=== PATIENT | male | born 1980 | race Caucasian/White ===

== ENCOUNTER 2017-07-09 12:51 | Emergency (ER) | payer OTHER ==
[2017-07-09] MEDS ORDERED: Acetaminophen TAB* 325 MG PO ONE (14:31)
[2017-07-09 16:44] VITALS: BP 136/73
--- NOTE | 2017-07-13 15:50 | ED ---
Wendy Jasmine Gabriel scribed for Mariano Jones MD on 07/09/17 at 1428 . Headache - HPI Summary HPI Summary: This patient is a 36 year old M presenting to [facility] with a chief complaint of ARMENTA since 0500 this morning. The patient rates the intermittent pain 3/10 in severity. Patient reports myalgia, decreased appetite, and chills. Patient denies n/v/d, CP, SOB, pain behind the eyes, and dental pain. Patient reports positive contact with sick persons and has history of migraines. - History Of Current Complaint Chief Complaint: EDHeadache Stated Complaint: POSSIBLE FLU Time Seen by Provider: 07/09/17 14:16 Hx Obtained From: Patient Initially Headache Was: Initial Pain Scale(0-10)= - 8 Currently Pain Is: Current Pain Scale(0-10)= - 3 Timing: Constant Associated Signs And Symptoms: Other (Noted In Comments) - myalgia, decreased appetite, and chills - Allergies/Home Medications Allergies/Adverse Reactions: Allergies Allergy/AdvReac Type Severity Reaction Status Date / Time Penicillins Allergy Unknown Verified 07/09/17 13:08 Reaction Details Home Medications: Home Medications NK [No Home Medications Reported] 07/09/17 [History Confirmed 07/09/17] PMH/Surg Hx/FS Hx/Imm Hx Endocrine/Hematology History: Denies: Hx Anticoagulant Therapy, Hx Blood Disorders, Hx Blood Transfusions Cardiovascular History: Denies: Hx Cardiac Arrest, Hx Cardiomegaly, Hx Congestive Heart Failure Respiratory History: Denies: Hx Chronic Obstructive Pulmonary Disease (COPD), Hx Cystic Fibrosis Neurological History: Reports: Hx Migraine Infectious Disease History: No Infectious Disease History: Denies: Traveled Outside the [place] in Last 30 Days - Family History Known Family History: Negative: Renal Disease, Respiratory Disease, Seizure Disorder - Social History Occupation: Employed Full-time Alcohol Use: Occasionally Substance Use Type: Reports: Marijuana Smoking Status (MU): Former Smoker Review of Systems Constitutional: Other - decreased appetite Positive: Chills Negative: Erythema Negative: Dental Pain, Sore Throat Negative: Chest Pain Negative: Shortness Of Breath, Cough Negative: Abdominal Pain, Vomiting, Diarrhea, Nausea Negative: dysuria, hematuria Positive: Myalgia. Negative: Edema Negative: Rash Neurological: Negative - dizziness Positive: Headache All Other Systems Reviewed And Are Negative: Yes Physical Exam - Summary Physical Exam Summary: Constitutional: Well-developed, Well-nourished, Alert. (-) Distressed Skin: Warm, Dry HENT: Normocephalic; Atraumatic Eyes: Conjunctiva normal Neck: Musculoskeletal ROM normal neck. (-) JVD, (-) Stridor, (-) Tracheal deviation Cardio: Rhythm regular, rate normal, Heart sounds normal; Intact distal pulses; The pedal pulses are 2+ and symmetric. Radial pulses are 2+ and symmetric. (-) Murmur Pulmonary/Chest wall: Effort normal. (-) Respiratory distress, (-) Wheezes, (-) Rales Abd: Soft, (-) Tenderness, (-) Distension, (-) Guarding, (-) Rebound Musculoskeletal: (-) Edema Lymph: (-) Cervical adenopathy Neuro: Alert, Oriented x3 Psych: Mood and affect Normal Triage Information Reviewed: Yes Vital Signs On Initial Exam: Initial Vitals Temp Pulse Resp BP Pulse Ox 99.1 F 71 16 173/96 98 07/09/17 13:04 07/09/17 13:04 07/09/17 13:04 07/09/17 13:04 07/09/17 13:04 Vital Signs Reviewed: Yes - [place] Coma Scale Coma Scale Total: 15 Diagnostics - Vital Signs Vital Signs Temp Pulse Resp BP Pulse Ox 07/09/17 13:04 99.1 F 71 16 173/96 98 - Laboratory Lab Statement: Any lab studies that have been ordered have been reviewed, and results considered in the medical decision making process. Headache Course/Dx - Course Assessment/Plan: This patient is a 36 year old M presenting to [facility] with a chief complaint of ARMENTA since 0500 this morning. The patient rates the intermittent pain 3/10 in severity. Patient reports myalgia, decreased appetite , and chills. Patient denies n/v/d, CP, SOB, pain behind the eyes, and dental pain. Patient reports positive contact with sick persons and has history of migraines. Test results with no significant abnormalities. In the ED course the patient was given Tylenol. ARMENTA may be due to viral or transient HTN no indication to start antihypertensive at this time no suspicion on meningitis. Patient will be discharged and follow up from physician referral center. The patient is agreeable with this plan. - Diagnoses Provider Diagnoses: Headache, Hypertension Discharge - Discharge Plan Condition: Stable Disposition: HOME Patient Education Materials: Acute Headache (ED) Referrals: No Primary Care Phys,NOPCP [Primary Care Provider] - [facility] PHYSICIAN REFERRAL [Outside] - 3 Days Additional Instructions: RETURN TO THE EMERGENCY DEPARTMENT FOR CHANGING OR WORSENING SYMPTOMS. The documentation as recorded by the Wendy upton Gabriel accurately reflects the service I personally performed and the decisions made by , Mariano Jones MD.
== END 2017-07-09 16:40 | disposition home or self-care (01) ==
LOC: ED 12:51
DX: R51 Headache (principal); I10 Essential (primary) hypertension; Z88.0 Allergy status to penicillin; Z87.891 Personal history of nicotine dependence
CPT/HCPCS: 87502; 99282; A9270-GY

== ENCOUNTER 2018-03-11 13:29 | Emergency (ER) | payer SELFPAY ==
[2018-03-11 13:51] VITALS: BP 137/93
--- NOTE | 2018-03-11 14:53 | ED ---
Back Pain - HPI Summary HPI Summary: A 37 y/o male presents to [facility] c/o back pain for the past 2 weeks. Currently, he describes his back pain as a spasm and when he sits the pain worsens. According to the patient, he was lifting an oven door (approximately 500 lbs for [employer], work-place injury) when he felt the back pain. He stated that he was lifting the object with four other individuals, however, he had trouble as it was straining his arms. He noted that he "seized up" when he stood back up (from sitting position) for the past two-weeks intermittently. However, yesterday, he was completing regular routine activities, which led to it exhibiting a throbbing character. Today, the pain has been shooting in his lower back and both sides. Additionally, he has been having trouble moving his legs such as when he is driving) or getting in/out of bed. no bowel/bladder changes. No analgesia taken Patients medication reviewed this visit. - History of Current Complaint Chief Complaint: UCBackPain Stated Complaint: BACK PAIN Time Seen by Provider: 03/11/18 14:31 Hx Obtained From: Patient Onset/Duration: Sudden Onset, Lasting Weeks, Still Present Onset/Duration: Started Weeks Ago, Still Present Timing: Intermittent Back Pain Location: Is Discrete @ - Lower back and sides Severity Initially: Moderate Severity Currently: Moderate Pain Intensity: 7 Pain Scale Used: 0-10 Numeric Character: Sharp, Throbbing, Spasmodic Aggravating Symptom(s): Other - Sitting Alleviating Symptom(s): Nothing Associated Signs And Symptoms: Positive: Negative - Allergies/Home Medications Allergies/Adverse Reactions: Allergies Allergy/AdvReac Type Severity Reaction Status Date / Time Penicillins Allergy Unknown Verified 03/11/18 13:51 Reaction Details PMH/Surg Hx/FS Hx/Imm Hx Previously Healthy: Yes Endocrine/Hematology History: Denies: Hx Anticoagulant Therapy, Hx Blood Disorders, Hx Blood Transfusions Cardiovascular History: Reports: Hx Hypertension Denies: Hx Cardiac Arrest, Hx Cardiomegaly, Hx Congestive Heart Failure Respiratory History: Denies: Hx Chronic Obstructive Pulmonary Disease (COPD), Hx Cystic Fibrosis Neurological History: Reports: Hx Migraine - Surgical History Surgery Procedure, Year, and Place: right forearm repair with plates and screws Infectious Disease History: No Infectious Disease History: Denies: Traveled Outside the [place] in Last 30 Days - Family History Known Family History: Negative: Renal Disease, Respiratory Disease, Seizure Disorder - Social History Occupation: Employed Full-time - [employer] Alcohol Use: Occasionally Substance Use Type: Reports: Marijuana Smoking Status (MU): Former Smoker Review of Systems Negative: Fever Positive: Other - POSITIVE: Back pain All Other Systems Reviewed And Are Negative: Yes Physical Exam - Summary Physical Exam Summary: Vital Signs Reviewed: Yes A+Ox3, no distress Eyes: Conjunctiva Clear, DARIA. EOM intact and full ENT: Hearing grossly normal TM x 2 clear, mmoist, uvula midline, no exudate, no erythema Neck: Positive: Supple Respiratory: Positive: No respiratory distress, No accessory muscle use + CTA throughout no w/r Cardiovascular: RRR nl s1, s2 no m/r CBT <2 sec abd soft + BS nt/nd no guarding, no distension Musculoskeletal Exam: No spinous process pain c/t/l/s Full aROM c spine + TTP Right lumbar paraspinal. + SLE b/l + flex/ext knee, ankle Neurological: Positive: Alert, + sensation throughout 2+ patellar without clonus + gross sensation b/l throughout Psychological: Positive: Normal Response To Family Skin: Positive: no rash, no ecchymosis Triage Information Reviewed: Yes Vital Signs On Initial Exam: Initial Vitals Temp Pulse Resp BP Pulse Ox 98.6 F 65 18 137/93 100 03/11/18 13:47 03/11/18 13:47 03/11/18 13:47 03/11/18 13:47 03/11/18 13:47 Vital Signs Reviewed: Yes Diagnostics - Vital Signs Vital Signs Temp Pulse Resp BP Pulse Ox 03/11/18 13:47 98.6 F 65 18 137/93 100 - Laboratory Lab Statement: Any lab studies that have been ordered have been reviewed, and results considered in the medical decision making process. - Radiology LUMBAR SPINE XR Radiology Interpretation Completed By: Radiologist - Unremarkable lumbar spine. [facility] PHYSICIAN REVIEWED THIS RADIOLOGY REPORT. Back Pain Course/Dx - Course Course Of Treatment: Pt with b.l low back pain R>L following lifting a 500lb item at work 2 weeks ago. pt states has felt tight since. Pt states since yesterday increased pain and paresthesia right LE. No sensation change no bowel /bladder changes. no analgesia taken. will give motrin, imaging. anticipate motrin/apap. heat. stretch. physcian referral. physical therapy referral - Diagnoses Provider Diagnoses: Lumbar strain Discharge - Sign-Out/Discharge Documenting (check all that apply): Patient Departure - DISCHARGE All imaging exams completed and their final reports reviewed: Yes - LUMBAR SPINE XR - Discharge Plan Condition: Stable Disposition: HOME Patient Education Materials: Low Back Strain (ED), Core Strengthening Exercises (GEN), Lower Back Exercises (ED) Referrals: [facility] [Outside] (Call for an appointment.) Additional Instructions: - Okay to alternate ibuprofen (Advil, Motrin) 600mg and Tylenol every 3 hours as needed for pain. Take with food. Do NOT take for more than 4-5 days.- -Apply moist heat to your back for 20 minutes at a time, 4-5 times a day. Once your muscles are warm. Once your muscles are warm, slow gentle stretching exercises are important. After you stretch your muscles, okay to apply ice ( wrapped in a towel) - When you sleep, if you are on your back, place a pillow under your knees. If you are on your side, place pillow between your knees. - You have been given a referral to physical therapy - it is recommended you call to schedule an appointment. -If you pain is uncontrolled or you have leg weakness or loss of control to your bladder or bowels - it is recommended you go to an emergency department for further treatment - Billing Disposition and Condition Condition: STABLE Disposition: Home - Attestation Statements Document Initiated by Charlene: Yes Documenting Scribe: Everett Johnson Provider For Whom Charlene is Documenting (Include Credential): Dora Thorpe MD Scribe Attestation: Everett Jasmine, scribed for Dora Thorpe MD on 03/13/18 at 1410. Scribe Documentation Reviewed: Yes Provider Attestation: The documentation as recorded by the Everett upton accurately reflects the service I personally performed and the decisions made by me, Dora Thorpe MD
[2018-03-11] MEDS ORDERED: Ibuprofen TAB* 600 MG PO ONE (15:16)
--- NOTE | 2018-03-11 15:25 | RAD ---
Indication: Low back pain. 3 views of the lumbar spine demonstrate vertebral bodies to be normal in height. Disc spaces all well-preserved. No fracture is noted. IMPRESSION: Unremarkable lumbar spine.
== END 2018-03-11 15:50 | disposition home or self-care (01) ==
LOC: UCEAST 13:29
CPT/HCPCS: 72100; 99212; A9270-GY; G0463

== ENCOUNTER 2019-08-11 22:41 | Emergency (ER) | payer SELFPAY ==
[2019-08-11 23:58] LABS: ABS Basophils 0.1 10^3/ul (0-0.2); ABS Eosinophils 0.2 10^3/ul (0-0.6); ABS Lymphocytes 1.6 10^3/ul (1.0-4.8); ABS Monocytes 0.6 10^3/ul (0-0.8); ABS Neutrophils 7.3 10^3/ul (1.5-7.7); Eosinophil % 1.8 %; Hematocrit 38 % (42-52); Hemoglobin 13.7 g/dL (14.0-18.0); Lymphocyte % 16.1 %; Mean Corpuscular HGB Conc 36 g/dL (31-36); Mean Corpuscular Hemoglobin 30 pg (27-31); Mean Corpuscular Volume 83 fL (80-94); Mean Platelet Volume 9.3 fL (7.4-10.4); Platelet Count 166 10^3/uL (150-450); Red Blood Count 4.55 10^6 /uL (4.18-5.48); Red Cell Distribution Width 13 % (10-15); White Blood Count 9.7 10^3/uL (3.5-10.8)
[2019-08-12 00:02] LABS: Rapid Strep Molecular Negative (Negative)
[2019-08-12 00:19] LABS: Albumin 4.3 g/dL (3.2-5.2); Amylase 19 U/L (29-103); Anion Gap 5 mmol/L (2-11); CO2 Carbon Dioxide 28 mmol/L (22-32); Chloride 106 mmol/L (101-111); Sodium 139 mmol/L (135-145)
[2019-08-12 00:25] LABS: ALT 29 U/L (7-52); AST 15 U/L (13-39); Albumin/Globulin Ratio 1.8 (1-3); Alkaline Phosphatase 57 U/L (34-104); BUN/Creatinine Ratio 17.9 (8-20); Blood Urea Nitrogen 14 mg/dL (6-24); C Reactive Protein < 1.00 mg/L (<8.01); EGFR African American 134.1 (>60); EGFR Non-African American 110.8 (>60); Globulin 2.4 g/dL (2-4); Glucose 108 mg/dL (70-100); Total Protein 6.7 g/dL (6.4-8.9)
--- NOTE | 2019-08-12 00:59 | ED ---
Throat Pain/Nasal Congestion - HPI Summary HPI Summary: 39 year old male presents with left side neck pain for the past couple days. It feel like something is swollen there. He admits to occasional sore throat. He denies any history of strep. He is able to eat and drink. he states it hurts to swallow. Denies any chest or shortness of breath. No fevers. Never had this before. Has a medical conditions. No dental pain. He has been managing his airway. No drooling. - History of Current Complaint Chief Complaint: EDNeckComplaint Time Seen by Provider: 08/11/19 23:08 - Allergies/Home Medications Allergies/Adverse Reactions: Allergies Allergy/AdvReac Type Severity Reaction Status Date / Time Penicillins Allergy Unknown Verified 08/11/19 22:44 Reaction Details PMH/Surg Hx/FS Hx/Imm Hx Endocrine/Hematology History: Denies: Hx Anticoagulant Therapy, Hx Blood Disorders, Hx Blood Transfusions Cardiovascular History: Reports: Hx Hypertension Denies: Hx Cardiac Arrest, Hx Cardiomegaly, Hx Congestive Heart Failure Respiratory History: Denies: Hx Chronic Obstructive Pulmonary Disease (COPD), Hx Cystic Fibrosis Neurological History: Reports: Hx Migraine - Surgical History Surgery Procedure, Year, and Place: right forearm repair with plates and screws - Immunization History Immunizations Up to Date: Yes Infectious Disease History: No Infectious Disease History: Denies: Traveled Outside the [place] in Last 30 Days - Family History Known Family History: Negative: Renal Disease, Respiratory Disease, Seizure Disorder - Social History Alcohol Use: Occasionally Substance Use Type: Reports: Marijuana Smoking Status (MU): Former Smoker Review of Systems Negative: Fever Positive: Sore Throat Negative: Chest Pain Negative: Shortness Of Breath All Other Systems Reviewed And Are Negative: Yes Physical Exam Triage Information Reviewed: Yes Vital Signs On Initial Exam: Initial Vitals Temp Pulse Resp BP Pulse Ox 97.2 F 73 15 153/91 99 08/11/19 22:43 08/11/19 22:43 08/11/19 22:43 08/11/19 22:43 08/11/19 22:43 Vital Signs Reviewed: Yes Appearance: Positive: Well-Appearing Skin: Positive: Warm, Dry Head/Face: Positive: Normal Head/Face Inspection Eyes: Positive: Normal, Conjunctiva Clear ENT: Positive: Pharynx normal Neck: Positive: Other: - tenderness on left side of neck Respiratory/Lung Sounds: Positive: Clear to Auscultation, Breath Sounds Present Cardiovascular: Positive: Normal, RRR Musculoskeletal: Positive: Normal Neurological: Positive: Normal Psychiatric: Positive: Normal Procedures - Sedation Patient Received Moderate/Deep Sedation with Procedure: No Diagnostics - Vital Signs Vital Signs Temp Pulse Resp BP Pulse Ox 08/11/19 22:43 97.2 F 73 15 153/91 99 - Laboratory Lab Results: Lab Results 08/11/19 08/11/19 08/11/19 Range/Units 23:45 23:50 23:50 WBC 9.7 (3.5-10.8) 10^3/uL RBC 4.55 (4.18-5.48) 10^6 /uL Hgb 13.7 L (14.0-18.0) g/dL Hct 38 L (42-52) % MCV 83 (80-94) fL MCH 30 (27-31) pg MCHC 36 (31-36) g/dL RDW 13 (10-15) % Plt Count 166 (150-450) 10^3/uL MPV 9.3 (7.4-10.4) fL Neut % (Auto) 75.8 % Lymph % (Auto) 16.1 % Pershing % (Auto) 5.7 % Eos % (Auto) 1.8 % Baso % (Auto) 0.6 % Absolute Neuts (auto) 7.3 (1.5-7.7) 10^3/ul Absolute Lymphs (auto) 1.6 (1.0-4.8) 10^3/ul Absolute Monos (auto) 0.6 (0-0.8) 10^3/ul Absolute Eos (auto) 0.2 (0-0.6) 10^3/ul Absolute Basos (auto) 0.1 (0-0.2) 10^3/ul Absolute Nucleated RBC 0.0 10^3/ul Nucleated RBC % 0.0 Sodium 139 (135-145) mmol/L Potassium 4.0 (3.5-5.0) mmol/L Chloride 106 (101-111) mmol/L Carbon Dioxide 28 (22-32) mmol/L Anion Gap 5 (2-11) mmol/L BUN 14 (6-24) mg/dL Creatinine 0.78 (0.67-1.17) mg/dL Est GFR ( Amer) 134.1 (>60) Est GFR (Non-Af Amer) 110.8 (>60) BUN/Creatinine Ratio 17.9 (8-20) Glucose 108 H (70-100) mg/dL Calcium 9.0 (8.6-10.3) mg/dL Total Bilirubin 0.30 (0.2-1.0) mg/dL AST 15 (13-39) U/L ALT 29 (7-52) U/L Alkaline Phosphatase 57 (34-104) U/L C-Reactive Protein < 1.00 (<8.01) mg/L Total Protein 6.7 (6.4-8.9) g/dL Albumin 4.3 (3.2-5.2) g/dL Globulin 2.4 (2-4) g/dL Albumin/Globulin Ratio 1.8 (1-3) Amylase 19 L (29-103) U/L Monoscreen Negative (Negative) Group A Strep Rapid Negative (Negative) Result Diagrams: 08/11/19 23:50 08/11/19 23:50 Lab Statement: Any lab studies that have been ordered have been reviewed, and results considered in the medical decision making process. - Ultrasound No standard instances Ultrasound Interpretation Completed By: Radiologist Summary of Ultrasound Findings: IMPRESSION: Lymph node just above the level of the patient's pain in the left aspect of the neck. EENT Course/Dx - Course Course Of Treatment: 39 year old male presents with left side neck pain for the past couple days. It feel like something is swollen there. He admits to occasional sore throat. He denies any history of strep. He is able to eat and drink. he states it hurts to swallow. Denies any chest or shortness of breath. No fevers. Never had this before. Has a medical conditions. No dental pain. He has been managing his airway. No drooling. On exam lymphadenopathy noted on the left side of neck. nontender eduardo and kayla. amylase normal. lab work wnl. Ultrasound shows lymph node. We'll treat potential lymphadenitis with doxycycline. Patient understands and agrees with the plan. - Differential Diagnoses Differential Diagnoses: Pharyngitis, Tonsilitis, URI/Bronchitis - Diagnoses Provider Diagnoses: Lymphadenopathy Discharge ED - Sign-Out/Discharge Documenting (check all that apply): Patient Departure - Discharge Plan Condition: Good Disposition: HOME Prescriptions: DOXYcycline CAP(*) [DOXYcycline 100MG CAP(*)] 100 mg PO BID #7 cap Patient Education Materials: Lymphadenopathy (ED) Referrals: [facility] [Outside] Additional Instructions: take doxycyline twice a day for 7 days follow up with primary Return to ED if develop any new or worsening symptoms - Billing Disposition and Condition Condition: GOOD Disposition: Home
[2019-08-12] MEDS ORDERED: DOXYcycline CAP(*) 100 MG PO ONE (01:02)
[2019-08-12 01:19] VITALS: BP 154/90
== END 2019-08-12 01:19 | disposition home or self-care (01) ==
LOC: ED 22:41
DX: R59.0 Localized enlarged lymph nodes (principal); J02.9 Acute pharyngitis, unspecified; I10 Essential (primary) hypertension; Z88.0 Allergy status to penicillin; Z87.891 Personal history of nicotine dependence
CPT/HCPCS: 36415; 76536; 80053; 82150; 85025; 86140; 86308; 87651; 99282; A9270-GY

== ENCOUNTER 2023-06-05 15:14 | Inpatient (IN) ==
[2023-06-05 20:29] LABS: ABS Basophils 0.1 10^3/uL (0.0-0.1); ABS Eosinophils 0.1 10^3/uL (0.0-0.5); ABS Lymphocytes 2.2 10^3/uL (1.0-4.8); ABS Monocytes 0.7 10^3/uL (0.0-1.1); ABS Neutrophils 7.3 10^3/uL (1.5-7.6); ABS Nucleated RBC 0.04 10^3/ul; Eosinophil % 0.7 %; Hematocrit 42.4 % (38-53); Lymphocyte % 21.7 %; Mean Corpuscular Hgb Conc 35.4 g/dL (31-36); Mean Corpuscular Volume 84.7 fL (80-97); Mean Platelet Volume 7.4 fL (7.5-11.2); Nucleated Red Blood Cells % 0.4 %/100WBC (0.0-0.8); Platelet Count 402 10^3/uL (150-450); Red Blood Count 5.01 10^6/uL (4.06-5.63); White Blood Count 10.4 10^3/uL (3.6-10.2)
[2023-06-05 20:44] LABS: Activated Partial Thrombo Time 30.8 seconds (26.0-38.0); INR 1.05 (0.83-1.13)
[2023-06-05 20:49] LABS: Albumin 4.6 g/dL (3.2-5.2); Albumin/Globulin Ratio 1.1 (1-3); C Reactive Protein 9.06 mg/L (<8.01); Creatinine, Serum 0.99 mg/dL (0.67-1.17); Globulin 4.1 g/dL (2-4); Potassium 4.1 mmol/L (3.5-5.0); Total Bilirubin 0.3 mg/dL (0.2-1.0); Total Protein 8.7 g/dL (6.4-8.9); eGFR CKD-EPI 97.5 (>60)
[2023-06-05] MEDS: Vancomycin 1,000 MG in NS 0.9% 250 ml 250 ML IVPB ONE (21:03)
[2023-06-05] MEDS ORDERED: Vancomycin per Pharmacy 1 EA NOTE FOLLOW UP PRN (23:21)
[2023-06-06] MEDS: Vancomycin Trough Check NOTE FOLLOW UP ONE (05:44)
[2023-06-06] MEDS: Vancomycin 1,000 MG in NS 0.9% 250 ml 250 ML IVPB SCH (06:02)
[2023-06-06] MEDS: CMCS:Ketorolac 10 mg TAB (NF) PO PRN (14:30)
[2023-06-06] MEDS: Bacitracin OINTMENT TUBE TOPICAL PRN (20:52)
[2023-06-07 05:41] LABS: ABS Basophils 0.1 10^3/uL (0.0-0.1); ABS Eosinophils 0.3 10^3/uL (0.0-0.5); ABS Lymphocytes 3.4 10^3/uL (1.0-4.8); ABS Monocytes 0.7 10^3/uL (0.0-1.1); ABS Neutrophils 3.3 10^3/uL (1.5-7.6); ABS Nucleated RBC 0.01 10^3/ul; Eosinophil % 3.3 %; Lymphocyte % 44.3 %; Mean Corpuscular Hemoglobin 29.8 pg (27-33); Mean Corpuscular Hgb Conc 35.2 g/dL (31-36); Mean Corpuscular Volume 84.5 fL (80-97); Mean Platelet Volume 7.1 fL (7.5-11.2); Nucleated Red Blood Cells % 0.2 %/100WBC (0.0-0.8); Platelet Count 291 10^3/uL (150-450); Red Blood Count 4.37 10^6/uL (4.06-5.63); Red Cell Distribution Width 13.2 % (12-17); White Blood Count 7.7 10^3/uL (3.6-10.2)
[2023-06-08 05:52] LABS: ABS Basophils 0.1 10^3/uL (0.0-0.1); ABS Eosinophils 0.2 10^3/uL (0.0-0.5); ABS Lymphocytes 3.4 10^3/uL (1.0-4.8); ABS Monocytes 0.6 10^3/uL (0.0-1.1); ABS Neutrophils 3.6 10^3/uL (1.5-7.6); ABS Nucleated RBC 0.01 10^3/ul; Lymphocyte % 43.1 %; Mean Corpuscular Hemoglobin 30.1 pg (27-33); Mean Corpuscular Volume 83.4 fL (80-97); Mean Platelet Volume 7.4 fL (7.5-11.2); Nucleated Red Blood Cells % 0.1 %/100WBC (0.0-0.8); Platelet Count 296 10^3/uL (150-450); Red Blood Count 4.32 10^6/uL (4.06-5.63); Red Cell Distribution Width 12.8 % (12-17); White Blood Count 7.9 10^3/uL (3.6-10.2)
[2023-06-08] MEDS: Influenza vaccine *QUAD* *2023-24* 0.5 ML SYRINGE IM ONE (09:20)
[2023-06-08 12:08] LABS: HIV 4th Generation Nonreactive (Nonreactive)
[2023-06-08 15:14] VITALS: BP 140/72
[2023-06-10] MEDS ORDERED: Vancomycin Trough Check NOTE FOLLOW UP ONE (05:30)
[2023-06-11 09:01] LABS: Immunoglobulin A 109 mg/dL (61 - 356); Immunoglobulin G 1470 mg/dL (767 - 1590); Immunoglobulin M 48 mg/dL (37 - 286)
== END 2023-06-08 14:32 | disposition home or self-care (01) | DRG 603 ==
LOC: ED 15:14 → EDHOLD 22:44 → SUATTDRO 22:44 → MEDTELE 06-06 16:25
PROVIDERS: ADMIT Internal Medicine; ATTEND Internal Medicine